=== PATIENT | male | born 1980 | race Hispanic/Latino ===

== ENCOUNTER 2021-10-09 06:36 | Day surgery (SDC) | payer OTHER ==
[2021-10-07 16:13] LABS: Absolute Lymphocytes (CBC) 1.7 K/uL (0.7-4.9); Lymphocytes % 20.6 % (15.3-44.8); RBC Red Blood Cell Count 5.18 M/uL (4.33-5.43)
--- NOTE | 2021-10-07 16:16 | RAD REPORT ---
EXAM DESCRIPTION: RAD - Chest Pa And Lat (2 Views) - 10/07/2021 4:10 pm CLINICAL HISTORY: pre op pending cholecystectomy Chest pain. COMPARISON: No comparisons FINDINGS: The lungs are clear. The heart is normal in size. No displaced fractures. IMPRESSION: No acute or concerning finding suspected.
[2021-10-07 16:23] LABS: Albumin 4.5 g/dL (3.4-5.0); Bilirubin Direct 0.1 mg/dL (0-0.2); Bilirubin Total 0.6 mg/dL (0.2-1.0); Potassium 3.9 mmol/L (3.5-5.1); Protein, Total 7.9 g/dL (6.4-8.2)
--- NOTE | 2021-10-08 10:17 | EKG ---
Test Date: 2021-10-07 Test Time: 15:50:56 Applications Consultant: TF MEASUREMENT RESULTS: Intervals: Rate: 94 MT: 154 QRSD: 92 QT: 342 QTc: 427 [place]: P: 70 MT: 154 QRS: 66 T: 36 INTERPRETIVE STATEMENTS: Normal sinus rhythm Normal ECG No previous ECG available for comparison Electronically Signed On 10-08-21 10:14:37 [employer] by Rusty Richard
[2021-10-09] MEDS ORDERED: Ringers Lactate 1,000 ML IV ONE (06:52)
[2021-10-09] MEDS ORDERED: CEFOXITIN SODIUM 1 GM/VIAL ONE (06:52)
[2021-10-09] MEDS ORDERED: ACETAMINOPHEN 500 MG TAB ONE (07:08)
[2021-10-09] MEDS ORDERED: CELECOXIB 100 MG CAPSULE ONE (07:08)
[2021-10-09] MEDS ORDERED: FENTANYL CITR 100 MCG/2 ML ONE ×2 (07:12→08:09)
[2021-10-09] MEDS ORDERED: MIDAZOLAM HCL 2 MG/2 ML INJ ONE (07:13)
[2021-10-09] MEDS ORDERED: ROCURONIUM 50 MG/5 ML VIAL IV ONE (07:13)
[2021-10-09] MEDS ORDERED: propofoL 200 MG/20 ML VIAL IV ONE (07:13)
[2021-10-09] MEDS ORDERED: LIDOCAINE 1% MPF 5 ML VIAL ONE (07:13)
[2021-10-09] MEDS: CEFOXITIN 1 GM in NA CHLORIDE 0.9% 50 ML IVPB ONE ×2 (07:45→07:50)
[2021-10-09] MEDS ORDERED: KETOROLAC 30 MG/ML INJ ONE (07:54)
[2021-10-09] MEDS ORDERED: ONDANSETRON 4 MG/2 ML VIAL ONE (07:56)
[2021-10-09] MEDS ORDERED: GLYCOPYRROLATE 0.2 MG/ML SYR ONE (08:04)
[2021-10-09] MEDS ORDERED: NEOSTIGMINE 1 MG/ML -5 ML ONE (08:08)
--- NOTE | 2021-10-09 08:40 | P.BOP ---
Preoperative diagnosis: symptomatic cholelithiasis, RUQ abd pain Postoperative diagnosis: same plus umbilical hernia Primary procedure: 1. Laparoscopic cholecystectomy Secondary procedure: 2. open repair of umbilical hernia Estimated blood loss: <10cc Specimen: GB, hernia sac Findings: as above Anesthesia: General Complications: None Transferred to: Recovery Room Condition: Good
[2021-10-09] MEDS: HYDROMORPHONE HCL 1 MG/ML INJ ONE ×4 (08:47→09:02)
[2021-10-09] MEDS ORDERED: SUCCINYLCHOLINE 20 MG/ML (10 ML) IV ONE (08:54)
[2021-10-09 09:42] VITALS: O2SAT 100
--- NOTE | 2021-10-09 09:55 | OP ---
Date of Procedure: 10/09/2021 Surgeon: Kervin Winter MD Preoperative Diagnoses: Right upper quadrant abdominal pain, acute cholecystitis, symptomatic cholel ithiasis. Postoperative Diagnoses: Right upper quadrant abdominal pain, acute cholecystitis, symptomatic rajendra lithiasis plus umbilical hernia. Procedures: 1.Laparoscopic cholecystectomy. 2.Open repair of umbilical hernia. Estimated Blood Loss: Less than 10 mL. Specimen: Hernia sac and gallbladder. Findings: The patient has an inflamed gallbladder. Also, the patient has an umbilical hernia that n eeds to be fixed in order for us to proceed. Specimen: Hernia sac and gallbladder. Anesthesia: General plus local. Complications: None. Indication: This is the case of a 41-year-old patient with above diagnosis. Fully explained the brii efits, alternatives, and risks of laparoscopic possible open cholecystectomy, which include, but not limited to infection, bleeding, damage to adjacent structures, anesthesia complication, choledocholit hiasis, bile leak, pancreatitis, CA, and even . He also understands this may not relieve any sy mptoms. He might need more than one surgical intervention. He understood, signed a consent. Procedure In Detail: The patient was brought to the operating room, placed in supine position. Anes thesia was done without complication. Abdominal area was prepped and draped in the usual sterile fas hion. Marcaine 0.5% was injected for local anesthetic followed by sharp incision of the skin in the periumbilical region. Once we got that, we noticed the patient has an umbilical hernia with incarcer ated omentum on it. We cannot proceed unless we fixed this hernia, so at that moment, we just remove d the hernia sac and reduced the omentum back into the abdomen after fully inspecting to make sure th ere was no bleeding including the fascial edges and then Vicryl #1 placed inside the fascia. Mei trocar was carefully introduced. Pneumoperitoneum was obtained. I placed 3 more trocars, 5 mm each one of them in the right upper quadrant under direct visualization. A grasper placed in the fundus o f the gallbladder, another grasper in the infundibulum, retracting the gallbladder in the inferolater al fashion, exposing the triangle of Calot and obtaining critical view. Cystic duct and cystic arter y were clearly isolated, freed circumferentially and a connection between those and the gallbladder w ere clearly identified. I proceeded to ligate those by using at least 3 clips proximal, 1 clip dista l, ligation in middle. Same was done with the cystic artery. No bile leak. No bleeding. The gallb ladder was removed from liver using Bovie cauterizer and removed from abdominal cavity using EndoCatc h through the umbilical incision. The area was inspected once again. No bile leak. No bleeding. C lips were intact. At that moment, I proceeded to remove the trocars under direct vision. Deflated p neumoperitoneum, closed the fascia and the umbilical hernia with #1 Vicryl in a [id number] fashi on multiple times. Area was irrigated. Subcutaneous tissue was closed with 3-0 chromic and the skin in a subcuticular fashion with 3-0 chromic and Steri-Strips on top. Sponge count, instrument counts correct. The patient tolerated the procedure well. The patient was sent to recovery in stable cond ition. MINA/BART Voice ID: [id number] Report ID: [id number]
--- NOTE | 2021-10-09 09:55 | DS ---
Diagnoses: Acute cholecystitis, symptomatic cholelithiasis, right upper quadrant abdominal pain, umb ilical hernia. Procedure: Laparoscopic cholecystectomy and repair of umbilical hernia. Disposition: Home. Activity: As tolerated. No heavy lifting. Plan: Follow up in my office in 1 week. Call for appointment at [phone]. Keep area dry until next doctor's visit. Medications: Include Tylenol No.3 q.4 hours p.r.n. pain. MINA/BART Voice ID: [id number] Report ID: [id number]
[2021-10-09] MEDS ORDERED: CODEINE 30MG/APAP 300MG TAB ONE (10:04)
[2021-10-09 10:24] VITALS: BP 137/83; TEMP 98.3
== END 2021-10-09 10:57 | disposition home or self-care (01) ==
LOC: OR 06:36
PROVIDERS: ATTEND Surgery
PROC: 0FT44ZZ Resection of Gallbladder, Percutaneous Endoscopic Approach (ICD-10-PCS; 2021-10-09)
PROC: 0WQF0ZZ Repair Abdominal Wall, Open Approach (ICD-10-PCS; principal; 2021-10-09 08:10)
DX: K80.10 Calculus of gallbladder with chronic cholecystitis without obstruction (principal); K42.9 Umbilical hernia without obstruction or gangrene; Z20.822 Contact with and (suspected) exposure to COVID-19
CPT/HCPCS: 93005; 85025; 80048; 36415; 82150; 80076; 88302; 88304; 83690; 71046; 49585; 47562; U0003; J2704; J0330; J2250; J3010 ×2; J1170 ×2; J2710; J7120; J0694 ×2; J2405